=== PATIENT | female | born 1995 | race Hispanic/Latino ===

== ENCOUNTER 2018-09-13 11:02 | Observation (INO) | payer MEDICAID, OTHER ==
[~2018-09-13] VITALS: Ht 154.9 cm; Wt 90.7 kg
[2018-09-13 12:22] LABS: APPEARANCE,URINE TURBID (CLEAR); BILIRUBIN,URINE NEGATIVE (NEGATIVE); COLOR,URINE YELLOW (YELLOW); GLUCOSE, URINE (UA) NEGATIVE (NEGATIVE); KETONES,URINE NEGATIVE (NEGATIVE); LEUKOCYTE ESTERASE ,URINE LARGE (NEGATIVE); NITRATE,URINE NEGATIVE (NEGATIVE); OCCULT BLOOD,URINE SMALL (NEGATIVE); PROTEIN,URINE NEGATIVE (NEGATIVE); UROBILINOGEN,URINE 0.2 mg/dL (0.2-1.0)
[2018-09-13 12:46] LABS: AMORPHOUS SEDIMENT,UR Many /LPF (None Seen); BACTERIA,URINE Few /HPF (None Seen); RBC,URINE 0-1 /HPF (0-1); SQUAMOUS EPITHELIAL CELL,UR Moderate /HPF (0-2)
[2018-09-13 14:36] VITALS: BP 106/72
== END 2018-09-13 14:38 | disposition home or self-care (01) ==
LOC: EDH 11:02 → LDH 11:58
PROVIDERS: ADMIT Obstetrics & Gynecology; ATTEND Obstetrics & Gynecology
DX: O26.892 Other specified pregnancy related conditions, second trimester (principal); R10.30 Lower abdominal pain, unspecified; W10.9XXA Fall (on) (from) unspecified stairs and steps, initial encounter; Y93.89 Activity, other specified; Y92.89 Other specified places as the place of occurrence of the external cause; Y99.8 Other external cause status; Z3A.21 21 weeks gestation of pregnancy
CPT/HCPCS: 76805; 81001; 99284; G0378 ×3

== ENCOUNTER 2019-06-25 11:08 | Emergency (ER) | payer MEDICAID, OTHER ==
[2019-06-25 12:10] LABS: APPEARANCE,URINE CLEAR (CLEAR); BILIRUBIN,URINE NEGATIVE (NEGATIVE); COLOR,URINE YELLOW (YELLOW); GLUCOSE, URINE (UA) NEGATIVE (NEGATIVE); KETONES,URINE NEGATIVE (NEGATIVE); LEUKOCYTE ESTERASE ,URINE NEGATIVE (NEGATIVE); NITRATE,URINE NEGATIVE (NEGATIVE); OCCULT BLOOD,URINE SMALL (NEGATIVE); PH,URINE 5.5 (5.0-8.0); PROTEIN,URINE NEGATIVE (NEGATIVE); UROBILINOGEN,URINE 0.2 mg/dL (0.2-1.0)
[2019-06-25 12:13] LABS: HCG,QUAL RESULT NEGATIVE (NEGATIVE)
[2019-06-25 12:52] LABS: BACTERIA,URINE Moderate /HPF (None Seen); MUCUS,URINE Moderate LPF (None Seen); RBC,URINE 0-1 /HPF (0-1); WBC,URINE 0-1 /HPF (0-1)
== END 2019-06-25 13:25 | disposition home or self-care (01) ==
LOC: EDH 11:08
DX: S39.012A Strain of muscle, fascia and tendon of lower back, initial encounter (principal); W23.0XXA Caught, crushed, jammed, or pinched between moving objects, initial encounter; Y93.89 Activity, other specified; Y92.810 Car as the place of occurrence of the external cause; Y99.8 Other external cause status
CPT/HCPCS: 72100; 81001; 81025

== ENCOUNTER 2022-07-23 16:38 | Inpatient (IN) | payer OTHER, MEDICAID ==
[~2022-07-23] VITALS: Ht 154.9 cm; Wt 104.8 kg
[2022-07-23] MEDS ORDERED: LACTATED RINGERS 500 ML 500 ML IV PRN (17:00)
[2022-07-23] MEDS ORDERED: EPHEDRINE SULFATE 50 MG/ML AMPULE IVP PRN (17:00)
[2022-07-23] MEDS ORDERED: ROPIVACAINE 0.2% 100ML VIAL 100 ML EP PRN (17:00)
[2022-07-23] MEDS ORDERED: NALOXONE HCL 0.4 MG/1 ML ML IV PRN (17:00)
[2022-07-23] MEDS: LACTATED RINGERS 1000ML 1,000 ML IV PRN ×2 (17:15→23:03)
[2022-07-23 17:34] LABS: APPEARANCE,URINE CLEAR (CLEAR); BILIRUBIN,URINE NEGATIVE (NEGATIVE); COLOR,URINE LIGHT-YELLOW (YELLOW); GLUCOSE, URINE (UA) NEGATIVE (NEGATIVE); KETONES,URINE NEGATIVE (NEGATIVE); LEUKOCYTE ESTERASE ,URINE 75 Leu/uL (NEGATIVE); NITRATE,URINE NEGATIVE (NEGATIVE); OCCULT BLOOD,URINE NEGATIVE (NEGATIVE); PH,URINE 5.5 (5.0-8.0); PROTEIN,URINE NEGATIVE (NEGATIVE); UROBILINOGEN,URINE 0.2 mg/dL (0.2-1.0)
[2022-07-23 17:48] LABS: BACTERIA,URINE RARE /HPF (None Seen); MUCUS,URINE RARE LPF (None Seen); SQUAMOUS EPITHELIAL CELL,UR FEW /HPF (0-2); YEAST,URINE BUDDING FEW /HPF (None Seen)
[2022-07-23 17:57] LABS: HEMATOCRIT 32.8 % (36-48); MEAN CORPUSCULAR HEMOGLOBIN 23.7 pg (27.0-33.0); MEAN CORPUSCULAR HGB CONC 30.8 g/dL (32.0-36.0); PLATELET COUNT (AUTO) 305 K/uL (130-400); RED BLOOD CELL COUNT(AUTO) 4.26 MIL/uL (4.00-5.50); RED CELL DISTRIBUTION WIDTH 13.6 % (11.0-15.5); WHITE BLOOD COUNT (AUTO) 10.9 K/uL (4.8-10.8)
[2022-07-23] MEDS ORDERED: DINOPROSTONE 10 MG VAGINAL SUPP VG SCH (18:00)
[2022-07-23] MEDS ORDERED: PREN-18 PO (18:10)
[2022-07-23 19:30] VITALS: BP 124/78
[2022-07-23 20:04] VITALS: BP 115/86
[2022-07-23] MEDS: PROMETHAZINE HCL 25 MG/ML 1ML AMPULE IM PRN (21:59)
[2022-07-23] MEDS: MEPERIDINE-PF 50 MG/ML SYG IVP PRN (22:00)
[2022-07-24] MEDS: PROMETHAZINE HCL 25 MG/ML 1ML AMPULE IM PRN (02:21)
[2022-07-24] MEDS: MEPERIDINE-PF 50 MG/ML SYG IVP PRN (02:22)
[2022-07-24] MEDS: LACTATED RINGERS 1000ML 1,000 ML IV PRN ×2 (05:38→10:09)
[2022-07-24] MEDS ORDERED: OXYTOCIN-LR 20 UNITS/1000 ML 1,000 ML IV ONE (06:40)
[2022-07-24 13:25] LABS: RAPID PLASMA REAGIN NONREACTIVE (NONREACTIVE)
[2022-07-24] MEDS ORDERED: ACETAMINOPHEN WITH CODEINE 1 TAB TAB PO PRN (14:30)
[2022-07-24] MEDS ORDERED: ACETAMINOPHEN 325 MG TAB PO PRN (14:30)
[2022-07-24] MEDS ORDERED: WITCH HAZEL 1 PAD TP PRN (14:30)
[2022-07-24] MEDS ORDERED: BENZOCAINE/LANOLIN/ALOE VERA 60 ML AEROSOL TP PRN (14:30)
[2022-07-24] MEDS ORDERED: LANOLIN 30GM OINTMENT TP PRN (14:30)
[2022-07-24] MEDS ORDERED: OXYTOCIN-LR 20 UNITS/1000 ML 1,000 ML IV SCH (14:30)
[2022-07-24] MEDS ORDERED: MEASLES/MUMPS/RUBELLA VACCINE, LIVE 0.5 ML/VIAL SQ PRN (14:30)
[2022-07-24] MEDS ORDERED: DIPH,PERTUSS(ACELL),TET VAC/PF 0.5 ML VIAL IM PRN (14:30)
[2022-07-24 17:13] VITALS: BP 124/66
[2022-07-24] MEDS: IBUPROFEN 600 MG TABLET PO PRN (17:29)
[2022-07-24] MEDS: DOCUSATE SODIUM 100 MG CAP PO SCH (21:10)
[2022-07-24 23:10] VITALS: BP 127/83
[2022-07-25 03:24] VITALS: BP 116/76
[2022-07-25 06:22] LABS: HEMATOCRIT 30.5 % (36-48); MEAN CORPUSCULAR HEMOGLOBIN 23.5 pg (27.0-33.0); MEAN CORPUSCULAR HGB CONC 30.5 g/dL (32.0-36.0); RED BLOOD CELL COUNT(AUTO) 3.96 MIL/uL (4.00-5.50); RED CELL DISTRIBUTION WIDTH 13.7 % (11.0-15.5); WHITE BLOOD COUNT (AUTO) 12.3 K/uL (4.8-10.8)
[2022-07-25 07:37] VITALS: BP 112/67
[2022-07-25] MEDS: DOCUSATE SODIUM 100 MG CAP PO SCH (09:36)
[2022-07-25] MEDS: IBUPROFEN 600 MG TABLET PO PRN (09:40)
[2022-07-25 12:05] VITALS: BP 119/73
== END 2022-07-25 14:45 | disposition home or self-care (01) | DRG 807 ==
LOC: LDH 16:38 → WSH 07-24 17:07
PROVIDERS: ADMIT Obstetrics & Gynecology; ATTEND Obstetrics & Gynecology
PROC: 3E0R3BZ Introduction of Anesthetic Agent into Spinal Canal, Percutaneous Approach (ICD-10-PCS; principal; 2022-07-24)
PROC: 3E0P7VZ Introduction of Hormone into Female Reproductive, Via Natural or Artificial Opening (ICD-10-PCS; 2022-07-24)
PROC: 10907ZC Drainage of Amniotic Fluid, Therapeutic from Products of Conception, Via Natural or Artificial Opening (ICD-10-PCS; 2022-07-24)
PROC: 10E0XZZ Delivery of Products of Conception, External Approach (ICD-10-PCS; 2022-07-24)
PROC: 0HQ9XZZ Repair Perineum Skin, External Approach (ICD-10-PCS; 2022-07-24)
PROC: 00HU33Z Insertion of Infusion Device into Spinal Canal, Percutaneous Approach (ICD-10-PCS; 2022-07-24)
DX: O69.1XX0 Labor and delivery complicated by cord around neck, with compression, not applicable or unspecified (principal); Z37.0 Single live birth; O70.0 First degree perineal laceration during delivery; Z3A.39 39 weeks gestation of pregnancy; O99.214 Obesity complicating childbirth
CPT/HCPCS: 36415; 81001; 85027; 86592; 86701; 86850; 86900; 86901; 87088; 87340; 87390; A4314; G0378; J2175; J2550; J2590; J2795; J7120